=== PATIENT | male | born 1995 | race Two or more races ===

== ENCOUNTER 2021-03-02 11:47 | Emergency (ER) | payer MEDICAID, OTHER ==
[~2021-03-02] VITALS: Ht 162.6 cm; Wt 57.2 kg
[2021-03-02 13:40] VITALS: BP 122/89
== END 2021-03-02 13:42 | disposition home or self-care (01) ==
LOC: ER 11:47
DX: S43.102A Unspecified dislocation of left acromioclavicular joint, initial encounter (principal); W01.0XXA Fall on same level from slipping, tripping and stumbling without subsequent striking against object, initial encounter; Y93.89 Activity, other specified; Y92.89 Other specified places as the place of occurrence of the external cause; Y99.8 Other external cause status
CPT/HCPCS: 73030